=== PATIENT | female | born 1955 | race Caucasian/White ===

== ENCOUNTER 2021-04-24 23:54 | Observation (INO) | payer MEDICARE ==
[~2021-04-24] VITALS: Ht 167.6 cm; Wt 80.7 kg
[2021-04-25 01:20] LABS: HEMOGLOBIN 14.3 gm/dl (12.3-15.3); RED BLOOD COUNT 4.52 M/UL (4.00-5.10); WHITE BLOOD COUNT 7.5 K/UL (4.5-11.0)
[2021-04-25 01:54] LABS: BUN/CREATININE RATIO 29 (0-10)
[2021-04-25 06:10] LABS: BUN/CREATININE RATIO 24 (0-10)
[2021-04-25] MEDS ORDERED: LEVOTHYROXINE75 MC1 PO (15:56)
[2021-04-25] MEDS ORDERED: CLONIDINE HCL0.1 MG PO (15:58)
[2021-04-25] MEDS ORDERED: OXYBUTYNIN CHLO10 MG PO (16:03)
[2021-04-25] MEDS ORDERED: SIMVASTATIN10 MG PO (16:04)
[2021-04-25] MEDS ORDERED: KEPPRA250 MG PO (16:05)
[2021-04-25] MEDS ORDERED: NAPROXEN500 MG PO (16:06)
[2021-04-25] MEDS ORDERED: LOSARTAN POTAS100 MG PO (16:07)
[2021-04-25] MEDS ORDERED: AMLODIPINE BESY10 MG PO (16:08)
[2021-04-25] MEDS ORDERED: ASPIRIN CHEWABL81 MG PO (16:12)
[2021-04-26 05:03] LABS: HEMOGLOBIN 13.2 gm/dl (12.3-15.3); RED BLOOD COUNT 4.14 M/UL (4.00-5.10)
[2021-04-26 05:12] LABS: WHITE BLOOD COUNT 5.3 K/UL (4.5-11.0)
[2021-04-26 05:35] LABS: BUN/CREATININE RATIO 16 (0-10)
[2021-04-26] MEDS ORDERED: SENOKOT-S TABL1 EACH PO (08:47)
[2021-04-26] MEDS ORDERED: MIRALAX17 GM PO (08:47)
== END 2021-04-26 10:25 | disposition home or self-care (01) ==
LOC: ER1 23:54 → CDU 04-25 08:17 → M/S 04-25 08:59
PROVIDERS: Emergency Medicine; Physician Assistant; ADMIT Internal Medicine
DX: R11.2 Nausea with vomiting, unspecified (principal); R77.8 Other specified abnormalities of plasma proteins; R42 Dizziness and giddiness; E87.6 Hypokalemia; K59.00 Constipation, unspecified; J44.9 Chronic obstructive pulmonary disease, unspecified; I10 Essential (primary) hypertension; E03.9 Hypothyroidism, unspecified; F17.210 Nicotine dependence, cigarettes, uncomplicated; G40.909 Epilepsy, unspecified, not intractable, without status epilepticus; R09.02 Hypoxemia; Z20.822 Contact with and (suspected) exposure to COVID-19; Z99.81 Dependence on supplemental oxygen; Z79.82 Long term (current) use of aspirin; Z79.899 Other long term (current) drug therapy
CPT/HCPCS: 0240U; 36415; 70450; 71045; 80048; 80053; 81001; 82550; 82553; 83605; 83690; 83735; 83874; 84484; 85025; 93005; 96374; 99285; G0378; J2405; J7030; J7120; Q9967

== ENCOUNTER 2021-04-30 23:52 | Emergency (ER) | payer MEDICARE ==
[~2021-04-30 23:52] MED LIST: AMLODIPINE BESY10 MG PO; ASPIRIN CHEWABL81 MG PO; CLONIDINE HCL0.1 MG PO; KEPPRA250 MG PO; LEVOTHYROXINE75 MC1 PO; LOSARTAN POTAS100 MG PO; MIRALAX17 GM PO; NAPROXEN500 MG PO; OXYBUTYNIN CHLO10 MG PO; SENOKOT-S TABL1 EACH PO; SIMVASTATIN10 MG PO
== END 2021-05-01 02:31 | disposition left against medical advice (07) ==
LOC: ER1 23:52
DX: Z53.21 Procedure and treatment not carried out due to patient leaving prior to being seen by health care provider (principal)